=== PATIENT | male | born 1950 | race Caucasian/White ===

== ENCOUNTER 2024-02-15 13:07 | Day surgery (SDC) | payer MEDICARE, SELFPAY ==
[2024-02-13 15:02] VITALS: BMI 24.3
[2024-02-15] VITALS (7 sets, daily range): BP systolic 133–157; BP diastolic 75–91; PULSE 34–63; RESP 12–17; TEMP 36.1–36.6; O2SAT 96–100; BMI 24.5
[2024-02-15] MEDS: LACTATED RINGERS 1,000 ML 42 ML IV (13:40)
[2024-02-15] MEDS: ACETAMINOPHEN 325 MG TABLET 975 MG PO (13:41)
--- NOTE | 2024-02-15 15:07 | PM.PREOP ---
Pre-operative Note Interval Note History & Physical reviewed/Exam performed by Physician: Yes Changes to H&P: No
--- NOTE | 2024-02-15 15:36 | SUR.PREOP ---
1534 - Popliteal block start time. Monitoring initiated and maintained throughout procedure. O2 2LNC. Medications given per Dr Kuhn. 1535 - Time out performed. 1545 - Injection time. 1547 - Block complete. Pt remained stable throughout procedure. No adverse reactions noted.
[2024-02-15] MEDS: CEFAZOLIN 2 GM/100 ML PREMIX 100 ML IV (16:05)
--- NOTE | 2024-02-15 16:19 | SUR.OPER ---
Prone on padded OR bed, head in foam head support, gel chest rolls, gel pad under knees, pillow under lower legs, toes free of pressure, arms secured on padded arm boards at <90 degrees abduction. Safety belt at thigh.
--- NOTE | 2024-02-15 16:20 | SUR.OPER ---
Prone on padded OR bed, head in foam head support, gel chest rolls, gel pad under knees, pillow under lower non op leg, operative leg draped free and resting on stack of blankets. toes free of pressure, arms secured on padded arm boards at <90 degrees abduction. Safety belt at waist
[2024-02-15] MEDS: BUPIVACAINE 0.25% W/ EPI 30 ML VIAL 60 ML INJ (16:27)
[2024-02-15] MEDS: OXYCODONE IR 5 MG TABLET PO (17:51)
--- NOTE | 2024-02-15 18:04 | PM.OP.1 ---
Operative Date/Time/Diagnoses Date of procedure: 02/15/24 Time of procedure: 16:00 Pre-op diagnosis: Left Achilles tendon rupture S86.012a Post-op diagnosis: same Procedure & Clinicians Procedure: Repair Achilles tendon rupture, left CPT code 79728 Same procedure as scheduled: Yes Indications: Patient is a 73-year-old male that is stepped off a boat onto a dock and had immediate pain weakness and a pop in his calf. This was 4 weeks ago. He was initially thought to have a sprain then later evaluated with orthopedics in [place] and found to have an Achilles tendon rupture. [place] [facility] and presented to me evaluation. We discussed treatment options including operative and non operative options. He was indicated for operative treatment to restore length and tension to his Achilles tendon. The risks and benefits of the procedure have been discussed with the patient and given the opportunity to ask questions. The risks of surgery include but are not limited to infection, weakness, rerupture, persistence of pain, damage to nerves and blood vessels,DVT, PE, cardiopulmonary complications and . The patient expressed a thorough understanding of the risks and benefits of surgery and has elected to proceed. Consent was signed. Surgeon: Cassandra Chapin Click Yes if Unassisted: Yes Anesthesia Type: General, Peripheral nerve block and Local Operative Notes Findings: Achilles tendon rupture centered about 8 to 9 cm above the insertion functional full rupture just diffuse stretched out fibers in continuity but no plantar flexion with Saldivar test. Mop end tendon. The Achilles tendon rupture site was isolated and mobilization of the proximal stump was completed. Using the minimally invasive pars technique 2 standard and 1 locking stitch were placed which obtained good tendon bite and this was threaded through the distal stump and anchored into the heel with a SwiveLock in the midsubstance SpeedBridge technique which reestablished plantar flexion with a Saldivar and palpable continuity of the Achilles. Closure Type: primary Specimen(s): none sent Prosthetic devices, grafts, tissues, transplants, or devices: Arthrex midsubstance SpeedBridge kit with 4.75 SwiveLock x2 in the heel and SutureTape Estimated Blood Loss (mL): 10 Blood products transfused: none Tourniquet time (min): 34 Procedure in detail: Patient was seen in the preoperative area the site of surgery marked informed consent confirmed. This was the left lower extremity. Patient had a preoperative regional block placed by the anesthesia team for postoperative pain control. The patient was then taken to the operative room general anesthesia was administered the patient was flipped into the prone position. Bony prominences well padded. The SCD was on the contralateral lower extremity. Tissue was turned to the left lower extremity a nonsterile thigh tourniquet was applied. The left lower extremity was prepped and draped in a standard sterile fashion a formal time-out procedure was performed confirming the patient's side and site of surgery administration of appropriate preoperative antibiotic all were in agreement. The left lower extremity was palpated. The area of the estimated a rupture proximally 8 cm above the insertion of the heel was marked out this was incised through skin just medial to the location of the Achilles tendon and stay well away of the sural nerve. Upon incision through the skin the paratenon was then opened and the mop ends of the tendon was immediately demonstrated consistent with the known rupture. The tendon ends were mobilized using a malleable retractor along the paratenon and an Allis clamp. Distal and proximal stumps were identified. A minimally invasive technique was utilized with a proximally 3 cm vertical incision just medial to the Achilles just enough to expose the proximal stump and allow placement of the pars jig. Next the needles and suture tapes were passed in the standard fashion then the sutures were brought out through the parent Tinel and tendon through the wound. And the suture passing technique was completed to pass the locking stitch leaving me with 2 standard and 1 locking stitch at proximal stump. These were pulled and cycled to make sure they had good catch in the tendon. Deep to the Achilles tendon a fasciotomy was made to allow all blood flow to aid with healing and reduce tension. Once I was satisfied with this we moved on to anchoring to the heel. Two small incisions on either side of the heel were made down to bone and these were drilled and then tapped. The banana Passer was inserted medially 1st from the heel through the distal stump and out the wound where the medial sutures from the proximal stump were then passed through the distal stump and out of the calcaneal incision. The same was completed for the lateral side. Once this was completed the sutures were passed through the 4.5 swivel locks and these were tightened into the heel and a sequential fashion restoring attention to the Achilles tendon. Once this was completed the Saldivar test demonstrated intact plantar flexion with appropriate tensioning 20-30 degrees plantar flexion. This was tested for strength and there was no rupture or gapping. At this point sutures were cut at the heel. A 0 Vicryl suture was used to over-sew at the rupture site, the tourniquet was released and hemostasis was achieved. And then 4-0 Monocryl was used to close the paratenon and subcutaneous tissue and 3-0 nylon in the skin. 20 cc of 0.25% Marcaine with epinephrine was used as local anesthetic. As the patient was placed into a sterile dressing with Xeroform gauze Webril and a resting plantar flexion splint of the proximally 20? plantar flexion. Complications: none Post-operative Condition: stable Disposition: PACU Plan for aftercare: Nonweightbearing or touchdown for balance with the assistive devices. Keep splint on and dry at all times. Aspirin 325 mg daily x6 weeks for DVT prophylaxis. Follow up in 2-3 weeks for suture removal and initiation of early range of motion weight-bearing. Patient will bring the boot and adjustable heel lifts to the clinic and will be changed from a splint to the adjustable heel lifts and boot at the 1st postoperative appointment.
== END 2024-02-15 18:42 | disposition home or self-care (01) ==
PROVIDERS: Referring Provider Orthopaedic Surgery Foot and Ankle Surgery; Visit Provider Orthopaedic Surgery Foot and Ankle Surgery
PROC: (CPT 27650; principal; 2024-02-15 14:45)
DX: S86.012A Strain of left Achilles tendon, initial encounter (principal); G89.18 Other acute postprocedural pain; Y93.39 Activity, other involving climbing, rappelling and jumping off; Y92.89 Other specified places as the place of occurrence of the external cause
CPT/HCPCS: 27650; 64450; J0690; J1100; J2250; J2405; J2704; J3010